=== PATIENT | female | born 1970 | race Caucasian/White ===

== ENCOUNTER 2018-09-18 14:22 | Emergency (ER) | payer SELFPAY ==
[2018-09-18 14:28] VITALS: BMI 18.5
[2018-09-18 14:35] VITALS: BP 137/81; PULSE 94; TEMP 98.7
--- NOTE | 2018-09-18 14:51 | PDOC ---
History of Present Illness - General Chief Complaint: Redness To Affected Area Stated Complaint: BILAT LEG SWELLING/REDNESS Time Seen by Provider: 09/18/18 14:39 - History of Present Illness Initial Comments: 09/18/18 14:50 48 yo F with h/o recurrent cellulitis, IVDA, asthma who p/w BL LE redness, pain , and swelling. Patient reports acute onset of leg swelling, redness, and pain beginning 09/14/18. No identifiable triggers or alleviators. Patient states that she scratches her legs frequently. Patient denies trauma to legs. No recent travel, immobilization, trauma, OCP use, blood coauglopathies. Patient denies N/V, F,C, cough, wheezing, CP, SOB, urinary complaints, abdominal pain, diarrhea, BPR, constipation, lightheadedness, weakness, sensory changes. PMHx: as noted above. Denies h/o DM, CHF, cellulitis. ROS: as noted SHx: Denies IVDA this year. Denies h/o tobacco use. Allergies: PCN- swelling of airway Past History - Past Medical History Allergies/Adverse Reactions: Allergies Allergy/AdvReac Type Severity Reaction Status Date / Time Penicillins Allergy Difficulty Verified 09/18/18 14:23 Breathing shellfish derived Allergy Difficulty Verified 09/18/18 14:23 Breathing Home Medications: Ambulatory Orders Alprazolam [Xanax -] 0.5 mg PO Q12H #10 tablet 08/30/13 Escitalopram Oxalate [Lexapro -] 10 mg PO DAILY #30 tablet 08/30/13 Salmeterol/Fluticasone [Advair 500Mcg/50Mcg -] 1 inh PO BID #1 inh 08/30/13 Albuterol Sulfate Inhaler - [Ventolin HFA Inhaler -] 2 inh PO Q4H PRN #1 inh 05/06 Montelukast Na [Singulair -] 10 mg PO HS #30 tablet 10/29/14 Oxycodone HCl/Acetaminophen [Percocet 5-325 mg Tablet] 1 - 2 tab PO Q6H PRN #12 tab 10/29/14 Clindamycin [Cleocin -] 300 mg PO TID #21 capsule 11/26/14 Emtricitabine/Tenofovir [Truvada -] 1 tab PO DAILY #30 tablet 11/26/14 Raltegravir [Isentress] 400 mg PO BID #60 tab 11/26/14 Clindamycin [Cleocin -] 450 mg PO TID #63 capsule MDD 9 tab 09/18/18 Asthma: Yes COPD: No Psychiatric Problems: Yes (anxiety/DEPR) - Surgical History Abdominal Surgery: Yes (ABD PLASTY) - Immunization History Immunization Up to Date: No - Suicide/Smoking/Psychosocial Hx Smoking Status: No Smoking History: Never smoked Have you smoked in the past 12 months: No Number of Cigarettes Smoked Daily: 0 Hx Alcohol Use: No Drug/Substance Use Hx: No Substance Use Type: None Hx Substance Use Treatment: No Review of Systems - Review of Systems Comments:: 09/18/18 14:50 GENERAL/CONSTITUTIONAL: No fever or chills. No weakness. HEAD, EYES, EARS, NOSE AND THROAT: No change in vision. No ear pain or discharge. No sore throat. CARDIOVASCULAR: No chest pain or shortness of breath RESPIRATORY: No cough, wheezing, or hemoptysis. GASTROINTESTINAL: No nausea, vomiting, diarrhea or constipation. GENITOURINARY: No dysuria, frequency, or change in urination. MUSCULOSKELETAL: No joint or muscle swelling or pain. No neck or back pain. SKIN: + BL Leg swelling, redness. NEUROLOGIC: No headache, vertigo, loss of consciousness, or change in strength/ sensation. ENDOCRINE: No increased thirst. No abnormal weight change HEMATOLOGIC/LYMPHATIC: No anemia, easy bleeding, or history of blood clots. ALLERGIC/IMMUNOLOGIC: No hives or skin allergy. *Physical Exam - Vital Signs Last Vital Signs Temp Pulse Resp BP Pulse Ox 98.7 F 94 H 17 137/81 95 09/18/18 14:23 09/18/18 14:23 09/18/18 14:23 09/18/18 14:23 09/18/18 14:23 - Physical Exam Comments: 09/18/18 14:50 GENERAL: Awake, alert, and fully oriented, in no acute distress HEAD: No signs of trauma, normocephalic, atraumatic EYES: PERRLA, EOMI, sclera anicteric, conjunctiva clear ENT: Hearing grossly normal, nares patent, oropharynx clear without exudates. Moist mucosa NECK: Normal ROM, supple, no lymphadenopathy, JVD, or masses LUNGS: No distress, speaks full sentences, clear to auscultation bilaterally HEART: Regular rate and rhythm, normal S1 and S2, no murmurs, rubs or gallops, peripheral pulses normal and equal bilaterally. ABDOMEN: Soft, nontender, normoactive bowel sounds. No guarding, no rebound. No masses EXTREMITIES : BL LE with erythema, warmth, ttp, and 2 pitting edema extending from BTK to superior malleolus. + Indistinct margins. No foot, hand, face involvement. Non indurated, non fluctuant. Absent streaking, lymphadenopathy. Normal inspection, Normal range of motion, no edema. No clubbing or cyanosis. SKIN: + Diffuse lower extremity skin excoriations. Warm, Dry, normal turgor. Moderate Sedation - Procedure Monitoring Vital Signs: Procedure Monitoring Vital Signs Temperature 98.7 F 09/18/18 14:23 Pulse Rate 94 H 09/18/18 14:23 Respiratory Rate 17 09/18/18 14:23 Blood Pressure 137/81 09/18/18 14:23 O2 Sat by Pulse Oximetry (%) 95 09/18/18 14:23 Medical Decision Making - Medical Decision Making 09/18/18 15:37 48 yo F with h/o recurrent cellulitis, IVDA, asthma who p/w BL LE redness, pain , and swelling. VSS, AF, A&OX3. + BL LE with non streaking erythema with, warmth , ttp, and 2 pitting edema extending from BTK to superior malleolus. Probable cellulitis. Low suspicion DVT based on Weils criteria. No evidence of abscess, fluctuance. Low suspicion abscess, nec. fasc. or lymphangitis. No evidence fluid /volume overload. Cardiopulmonary exam unremarkable. Ed Course: Patient PCN allergic. Clindamycin 450 mg PO 09/18/18 15:48 Clindamycin sent to pharmacy. *DC/Admit/Observation/Transfer Diagnosis at time of Disposition: Cellulitis Qualifiers: Site of cellulitis: extremity Site of cellulitis of extremity: lower extremity Laterality: unspecified laterality Qualified Code(s): L03.119 - Cellulitis of unspecified part of limb - Discharge Dispostion Condition at time of disposition: Stable Decision to Admit order: No - Prescriptions Prescriptions: Clindamycin [Cleocin -] 450 mg PO TID #63 capsule MDD 9 tab - Referrals Referrals: Frida Cortez MD [Staff Physician] - - Patient Instructions Printed Discharge Instructions: DI for Cellulitis -- Adult Additional Instructions: Please return to the emergency department with any new or worsening symptoms or concerns. Please follow up with your primary care physician within 72 hours. Please take Clindamycin 450 mg three times a day. Please follow up with Dermatology within one week. - Post Discharge Activity Forms/Work/School Notes: Back to Work, Parent(s) Back to Work Note - Attestations Physician Attestion: 09/18/18 14:51 I attest to the information provided in this note.
[2018-09-18] MEDS ORDERED: CLINDAMYCIN HCL 150 MG CAPSULE (FP) PO ONE (15:42)
--- NOTE | 2018-09-18 16:38 | PDOC ---
Attending Attestation - Resident Resident Name: Jer Lyle - ED Attending Attestation I have performed the following: I have examined & evaluated the patient, The case was reviewed & discussed with the resident, I agree w/resident's findings & plan, Exceptions are as noted - HPI HPI: 09/18/18 16:33 48y F hx of astham, IVDU, presents with b/l LE edema/redness for the past several days (4 days) from the ankle to knee bilaterally. Pt notes she developed dark patches on her legs a 4-5 months ago, was referred to derm but hadnt yet follwoed up. notse pt had been picking at it and scratching unconciously, but approx 1 week ago, she started having some swelling and then redness developed a few days later. Pt notse it is now painful in certain parts of her legs. denies f/c, n/v, abd pain, focal numbness/tingling/weakness, recent trauma, cp, sob, hemoptysis no prior history of cellitis, dvt, no recent IVDU on exam: general: pt in no distress skin: hyperpigmented patches on b/l feet, b/l non streaking b/l circumferential eythma +warm/ttp, 2+pitting edema not indurated/fluctuant +pulses b/l suspect celluitis will treat with abx will dc with return precautions pmd fu - Physicial Exam PE: 09/21/18 07:00see aboe - Medical Decision Making 09/21/18 07:00 see above
[2018-09-18] MEDS ORDERED: CLINDAMYCIN HCL 150 MG CAPSULE (FP) ONE (17:18)
== END 2018-09-18 17:30 | disposition home or self-care (01) ==
LOC: FER 14:22
DX: J45.909 Unspecified asthma, uncomplicated (principal); F41.8 Other specified anxiety disorders
CPT/HCPCS: 99281-25